=== PATIENT | male | born 1950 | race African-American/Black ===

== ENCOUNTER 2018-03-30 10:57 | Emergency (ER) | payer SELFPAY ==
[~2018-03-30] VITALS: Ht 172.7 cm; Wt 100.0 kg
[2018-03-30 11:01] VITALS: Ht 172.7 cm; Wt 100.0 kg
[2018-03-30] MEDS ORDERED: CHRONULAC30 ML PO (11:03)
[2018-03-30] MEDS ORDERED: ZOFRAN4 MG PO (11:04)
[2018-03-30] MEDS ORDERED: METOPROLOL TART25 MG PO (11:04)
[2018-03-30] MEDS ORDERED: ATIVAN0.5 MG PO (11:05)
[2018-03-30] MEDS ORDERED: KEPPRA500 MG PO (11:06)
[2018-03-30] MEDS ORDERED: FOLIC ACID1 MG PO (11:06)
[2018-03-30] MEDS ORDERED: REMERON15 MG PO (11:06)
[2018-03-30] MEDS ORDERED: VITAMIN B-12500 MC1 PO (11:07)
[2018-03-30] MEDS ORDERED: VITAMIN B-1100 M1 PO (11:07)
[2018-03-30 12:39] LABS: HEMATOCRIT 43.3 % (42.0-54.0); HEMOGLOBIN 14.3 g/dL (13.5-17.5); LYMPHOCYTES 21.4 % (15-50); MCH 26.9 pg (26.0-34.0); MCV 81.5 fL (80.0-100.0); MEAN PLATELET VOLUME 10.9 fL (7.4-10.4); NEUTROPHILS 70.1 % (40-80); PLATELET COUNT 228 10x3/uL (130-400); RBC 5.31 10x6/uL (4.20-6.10); RDW 14.7 % (11.5-14.5); WBC 7.2 10x3/uL (4.8-10.8)
[2018-03-30 12:50] LABS: AMYLASE - SERUM 52 U/L (25-115); LIPASE 105 U/L (73-393)
[2018-03-30 13:35] LABS: APPEARANCE CLEAR (CLEAR); BILIRUBIN NEGATIVE (NEGATIVE); COLOR YELLOW (YELLOW); GLUCOSE NEGATIVE (NEGATIVE); KETONE NEGATIVE (NEGATIVE); NITRITE NEGATIVE (NEGATIVE); PROTEIN NEGATIVE (NEGATIVE); SPECIFIC GRAVITY 1.015 (1.005-1.020); UROBILINOGEN NORMAL (NORMAL)
[2018-03-30 13:57] LABS: ALBUMIN 3.7 g/dL (3.4-5.0); ALKALINE PHOSPHATASE 103 U/L (46-116); ALT (SGPT) 37 U/L (10-68); BILIRUBIN - TOTAL 0.81 mg/dL (0.2-1.3); CARBON DIOXIDE 24.3 mmol/L (21.0-32.0); GLUCOSE 113 mg/dL (74-106); PROTEIN - SERUM 8.6 g/dL (6.4-8.2)
[2018-03-30 14:02] LABS: CALCIUM 9.3 mg/dL (8.5-10.1); CHLORIDE - SERUM 100 mmol/L (98-107); CREATININE - SERUM 0.8 mg/dL (0.6-1.3); SODIUM 135 mmol/L (136-145); eGFR NON AFRICAN AMERICAN > 90 mL/min (90-120)
[2018-03-30 14:09] LABS: CALC OSMOLALITY 269 mosm/kg (275-300); UREA NITROGEN 11 mg/dL (7-18)
[2018-03-30 16:01] VITALS: BP 142/64
== END 2018-03-30 16:03 ==
LOC: D.ER 10:57
PROVIDERS: Family Medicine
DX: R10.9 Unspecified abdominal pain (principal); S39.011A Strain of muscle, fascia and tendon of abdomen, initial encounter; X58.XXXA Exposure to other specified factors, initial encounter; Y93.89 Activity, other specified; Y92.019 Unspecified place in single-family (private) house as the place of occurrence of the external cause